=== PATIENT | male | born 1955 | race Caucasian/White ===

== ENCOUNTER 2018-08-14 08:27 | Emergency (ER) | payer OTHER ==
[~2018-08-14] VITALS: Ht 185.4 cm; Wt 106.8 kg
[~2018-08-14 08:27] MED LIST: ATENOLOL50 MG PO; COZAAR100 MG PO; NORVASC10 M1 PO
[2018-08-14 09:00] LABS: PROTHROMBIN TIME 10.9 SECONDS (9.0-12.5)
[2018-08-14 09:02] VITALS: BP 129/80
[2018-08-14 09:02] LABS: ALBUMIN 4.3 g/dL (3.2-5.0); ALKALINE PHOSPHATASE 131 u/l (38-126); ANION GAP 14 (6-22 (CALC)); BILIRUBIN, TOTAL 0.5 mg/dL (0.0-1.4); BUN 20 mg/dL (8-23); BUN/CREATININE RATIO 17 (12-20 (CALC)); CARBON DIOXIDE 23 mmol/l (22-30); CHLORIDE 106 mmol/l (95-108); CREATININE 1.2 mg/dL (0.7-1.3); GFR > 60 ML/MIN (>=60 (CALC)); GFR FOR AFR.AMER. > 60 ML/MIN (>=60 (CALC)); HEMATOCRIT 46.4 % (39.0-50.0); HEMOGLOBIN 15.6 g/dl (14.0-18.0); IMMATURE GRANULOCYTES 0.3 % (0.0-5.0); MEAN CELL VOLUME 89.1 fL CALC (80.0-100.0); MEAN CORPUSCULAR HGB 29.9 pG CALC (26.0-32.0); MEAN CORPUSCULAR HGB CONC 33.6 g/L CALC (32.0-36.0); NEUT# 7.28 thou/uL (1.82-7.42); RED BLOOD COUNT 5.21 mill/uL (4.70-6.10); RED CELL DISTRI WIDTH 12.5 % (11.5-15.5); SGOT/AST 27 u/l (19-48); SODIUM 140 mmol/l (137-146); TOTAL PROTEIN 7.6 g/dL (6.3-8.2)
[2018-08-14 09:14] LABS: MYOGLOBIN 36 ng/mL (0 - 121)
== END 2018-08-14 09:10 | disposition short-term general hospital (02) | DRG 282 ==
LOC: ED 08:27
PROVIDERS: Emergency Medicine
DX: I21.29 ST elevation (STEMI) myocardial infarction involving other sites (principal); I10 Essential (primary) hypertension; R06.02 Shortness of breath; R11.0 Nausea

== ENCOUNTER 2024-05-20 06:21 | Day surgery (SDC) | payer MEDICARE ==
[~2024-05-20] VITALS: Ht 185.4 cm; Wt 106.6 kg
[~2024-05-20 06:21] MED LIST changes: +ASPIRIN ADULT L81 M2 PO; +ASPIRIN81 MG PO; +CORDARONE/PACE100 MG PO; +COREG12.5 MG PO; +CRESTOR20 MG PO; +FLEXERIL5 M1 PO; +KLOR-CON M15 PO; +LASIX 20 MG TAB20 MG PO; +LIPITOR40 M1 PO; +LISINOPRIL10 MG PO; +LOSARTAN POTASS50 MG PO; +NORVASC5 M1 PO; +SALONPAS PAIN R TOP; +TIZANIDINE2 MG PO
[2024-05-20] MEDS ORDERED: LACTATED RINGER'S 1,000 ML IV ONE (06:57)
[2024-05-20] MEDS ORDERED: FAMOTIDINE 10MG/ML 2ML SDV IV ONE (06:57)
[2024-05-20 08:42] VITALS: BP 105/75
[2024-05-20] MEDS ORDERED: STERILE WATER FOR IRRIGATION 1,000 ML BTL IR ONE (12:11)
[2024-05-20] MEDS ORDERED: PROPOFOL 200 MG/20 ML VIAL IV ONE (14:25)
[2024-05-20] MEDS ORDERED: LIDOCAINE HCL 2% 2ML SDV IV ONE (14:25)
[2024-05-20] MEDS ORDERED: GLYCOPYRROLATE 0.2 MG/ML IV ONE (14:25)
== END 2024-05-20 09:00 | disposition home or self-care (01) ==
LOC: ORM 06:21
PROVIDERS: ATTEND Surgery
PROC: 0DBH8ZX Excision of Cecum, Via Natural or Artificial Opening Endoscopic, Diagnostic (ICD-10-PCS; principal; 2024-05-20)
DX: Z12.11 Encounter for screening for malignant neoplasm of colon (principal); D12.0 Benign neoplasm of cecum; K64.8 Other hemorrhoids; I10 Essential (primary) hypertension; Z95.1 Presence of aortocoronary bypass graft; Z80.0 Family history of malignant neoplasm of digestive organs